=== PATIENT | male | born 1990 | race Caucasian/White ===

== ENCOUNTER 2017-11-26 11:28 | Emergency (ER) | payer OTHER ==
[~2017-11-26] VITALS: Ht 177.8 cm; Wt 74.8 kg
[~2017-11-26 11:28] MED LIST: FLEXERIL PO; MOBIC7.5 MG PO; PREDNISONE 20 M20 M1 PO; ROBAXIN 750 MG750 M1 PO; TRAMADOL 50 MG50 MG PO; ZPAK PO
[2017-11-26] MEDS ORDERED: TRAMADOL 50 MG50 MG PO (12:08)
[2017-11-26] MEDS ORDERED: KEFLEX500 M1 PO (12:08)
[2017-11-26 12:37] VITALS: BP 146/93
== END 2017-11-26 12:38 | disposition home or self-care (01) ==
LOC: M.ERS 11:28
DX: L02.512 Cutaneous abscess of left hand (principal); J45.909 Unspecified asthma, uncomplicated; Z98.890 Other specified postprocedural states

== ENCOUNTER 2020-02-05 09:56 | Emergency (ER) | payer OTHER ==
[~2020-02-05] VITALS: Ht 177.8 cm; Wt 72.6 kg
[~2020-02-05 09:56] MED LIST changes: +KEFLEX500 M1 PO
[2020-02-05] MEDS ORDERED: TYLENOL WITH CO1 TA1 PO (11:07)
[2020-02-05] MEDS ORDERED: KEFLEX500 M1 PO (11:07)
[2020-02-05 11:33] VITALS: BP 142/77
== END 2020-02-05 11:35 | disposition home or self-care (01) ==
LOC: M.ERS 09:56
DX: M79.641 Pain in right hand (principal); J45.909 Unspecified asthma, uncomplicated; F17.210 Nicotine dependence, cigarettes, uncomplicated